=== PATIENT | male | born 1950 | race Caucasian/White ===

== ENCOUNTER 2021-11-08 08:55 | Outpatient (CLI) | payer MEDICARE, OTHER, SELFPAY ==
--- NOTE | 2021-11-08 09:15 | TELERAD_ITS ---
[address] [address] Phone:?[phone] Fax:?[phone] Referring Physician Information: Ryan Pearce [address] [facility] [address] Phone:?[phone] Fax:?[phone] Patient:Javid Ross D.O.B:?1950 Sex:?Male Phone:?[phone] [facility] MRN:?[id number] Exam Date:?11/08/2021 ? EXAM: MRI of the RIGHT SHOULDER, without contrast CLINICAL INFORMATION: Male, 70 years old, with right shoulder pain. INDICATION: Evaluate for rotator cuff tear. PRIOR SURGERY: None reported. PLAIN FILMS: None available. COMPARISONS: No prior MRIs available. TECHNICAL INFORMATION: Using a 1.5T MR scanner and a localizing surface coil: coronal obliques: PD, T2, STIR sagittal obliques: PD, T2 axials: PD, T2 SEDATION: None CONTRAST: None FINDINGS: Bones: Proximal humerus: No fracture or marrow edema/pathology. No humeral Hill-Sachs or reverse Hill-Sachs lesion/impaction or contusion. Glenoid: No fracture or marrow edema/pathology. No osseous Bankart lesion. Rotator cuff and muscles/tendons: Supraspinatus: Full width, full-thickness tear of supraspinatus, tendon retraction to level the glenohumeral joint and grade 2 muscle atrophy. Infraspinatus: Full width, full-thickness tear of infraspinatus, with tendon retraction to the medial aspect of the humeral head and grade 2 muscle atrophy. Teres minor: No tendinopathy, tear or atrophy. Subscapularis: Mild tendinopathy is distal subscapularis with partial-thickness articular/interstitial tearing extending to the superior leading edge of the tendon over an area measuring 1.2 cm mediolateral by 1.0 cm superoinferior and involving approximately 50% of the tendon thickness (sagittal T2 series 8 image 9 and axial PD series 3 image 48). No muscle atrophy. Deltoid: No strain or atrophy. Coracoacromial arch: Acromion morphology: The acromion has type II morphology. No discrete subacromial osseous spur or os acromiale. Acromiohumeral space: The acromiohumeral space measures 2.5 mm at its narrowest point (osseous distance). Coracohumeral space: The coracohumeral space is within normal limits. Acromioclavicular joint: Joint: Mild to moderate AC joint arthropathy with approximately 3 mm of inferior osteophytosis. Ligaments: Coracoclavicular ligaments are intact. Bursae: Subacromial-subdeltoid: Moderate subacromial and subdeltoid bursal fluid, which reflects accumulation from the full-thickness rotator cuff tear. Subcoracoid: No convincing subcoracoid bursal thickening/bursitis. Biceps tendon: The long head of the biceps tendon is present within the bicipital groove inferiorly, but becomes medially subluxated at the lesser tuberosity. There is moderate tendinopathy and ill-defined intermediate grade partial-thickness articular segments (sagittal PD series 7 images 7-15). Glenohumeral joint: Effusion/cyst: Moderate glenohumeral joint effusion. Articular cartilage: Humeral head: No osteochondral abnormalities. Glenoid: No osteochondral abnormalities. Loose bodies: No discrete intra-articular body within the joint. Labrum:?Circumferential degeneration and tearing of the labrum, which is of doubtful clinical significance. Inferior glenohumeral ligament/axillary pouch:?Intact. The axillary pouch is normal in thickness and signal. No evidence of adhesive capsulitis or capsular injury. IMPRESSION: 1. Full width, full-thickness tears of supraspinatus & infraspinatus, each with tendon retraction to at least the medial aspect of the humeral head and grade 2 muscle atrophy. 2. Findings in keeping with a biceps bernice injury: -Mild subscapularis tendinopathy with a 1.2 x 1.0 cm area of intermediate grade interstitial tearing at the superior leading edge of the tendon. -Medial subluxation of the biceps long head tendon at the lesser tuberosity. -Moderate tendinopathy and ill-defined intermediate grade partial-thickness tearing of the intra-articular biceps long head tendon. 3. Moderate glenohumeral joint effusion which extends into the subacromial- subdeltoid bursa. No full-thickness condyle defect or evidence of osteoarthritis. 4. Marked narrowing of the acromiohumeral space. Additionally, there is mild- moderate AC joint arthropathy with 3 mm of inferior osteophytosis. 5. Circumferential degeneration and tearing of the labrum, which is of doubtful clinical significance. BC Electronically signed on 11/08/2021 2:02:00 PM by Stephan House M.D.
== END 2021-11-08 08:56 | disposition home or self-care (01) ==
LOC: MRI 08:59
PROVIDERS: PCP Family Medicine; Visit Provider Physician Assistant Surgical
DX: M25.511 Pain in right shoulder (principal); M75.101 Unspecified rotator cuff tear or rupture of right shoulder, not specified as traumatic; M25.411 Effusion, right shoulder; S46.911A Strain of unspecified muscle, fascia and tendon at shoulder and upper arm level, right arm, initial encounter
CPT/HCPCS: 73221

== ENCOUNTER 2021-11-23 15:38 | Outpatient (CLI) | payer MEDICARE, OTHER, SELFPAY ==
[2021-11-23 17:49] LABS: Chloride* 99 mmol/L (96-114)
[2021-11-23 17:50] LABS: Potassium* 5.1 mmol/L (3.6-5.1); Sodium* 132 mmol/L (135-149)
[2021-11-23 17:53] LABS: Blood Urea Nitrogen* 19 mg/dL (7-30); Calcium* 9.9 mg/dL (8.4-10.6); Carbon Dioxide* 25 mmol/L (20-32); Creatinine* 1.1 mg/dL (0.5-1.5); Estimated Glomerular Filt Rate 72 ml/min; Glucose* 104 mg/dL (60-115)
== END 2021-11-23 15:39 | disposition home or self-care (01) ==
LOC: LONREF 15:39
PROVIDERS: PCP Family Medicine; Visit Provider Family Medicine
DX: Z01.818 Encounter for other preprocedural examination (principal)
CPT/HCPCS: 80048

== ENCOUNTER 2021-11-28 08:16 | Day surgery (SDC) | payer MEDICARE, OTHER, SELFPAY ==
[2021-11-28] VITALS (17 sets, daily range): BP systolic 120–159; BP diastolic 55–96; PULSE 55–90; RESP 12–16; TEMP 36.1–37.1; O2SAT 91–100; BMI 31.1
[2021-11-28] MEDS: LACTATED RINGERS 1000 ML 1,000 ML 100 ML IV ×3 (08:30→16:24)
[2021-11-28] MEDS: ETHYL CHLORIDE 1 APPLICATION 1 APPLIC TOPICAL (09:08)
[2021-11-28] MEDS: SODIUM CHLORIDE 0.9 % (FLUSH) 10 ML SYRINGE IVF (09:08)
--- NOTE | 2021-11-28 09:13 | SUR.PREOP ---
TIME?OUT:?1012 PT/RN SHELDON /MARCIO ALFONSO ?VERIFICATION?OF?SURGICAL?SITE RIGHT SHOULDER,?PROCEDURE RIGHT SHOULDER BLOCK,?AND?CONSENT OBTAINED?PRIOR?TO?INVASIVE?PROCEDURE.
[2021-11-28] MEDS: fentaNYL 100 MCG/2 ML inj IVP (10:16)
[2021-11-28] MEDS: MIDAZOLAM HCL 1 MG/ML inj IVP (10:16)
--- NOTE | 2021-11-28 10:21 | W.PM.NB ---
Nerve Block Nerve Block Time Seen by Provider: 10:21 Date Seen: 11/28/21 Type of block requested by surgeon for post-operative analgesia: interscalene Side: right Time out performed: Yes Verification of patient name: Yes Verification of date of : Yes Site marking: site marked Name of person performing procedure: Reji Continuous monitoring Was continuous monitoring of O2 sat, B/P, manager monitoring, recorded every 15 minutes?: Yes Procedure Checklist: sterile prep, needles and gloves Ultrasound guided. Images saved: Yes Medications given in 5ml increments after negative aspiration: Marcaine %: 0.5 mL: 20 Needle gauge: 22 Decadron (mg): 10 Precedex (mcg): 25 Patient tolerated procedure well: Yes Block Charges Block Charge (with Pro Fee): Brachial Plexus Use of Ultrasound Machine for Block: Yes- US Guidance/pain block
[2021-11-28] MEDS: CEFAZOLIN 2 GM INJ IVP (11:39)
--- NOTE | 2021-11-28 14:05 | PM.ORPRC ---
Procedure Note Date of procedure: 11/28/21 Procedure: PREOPERATIVE DIAGNOSES: 1. Right shoulder rotator cuff [id number] supra and infra with grade 2 atrophy and tearing/retraction back to the posterior mid humeral head. Also upper border subscapularis tearing. 2. Right shoulder subacromial impingement syndrome. POSTOPERATIVE DIAGNOSES: 1. Right shoulder rotator cuff [id number] supra and infra with grade 2 atrophy and tearing/retraction back to the posterior mid humeral head. Also upper border subscapularis tearing. 2. Right shoulder AC degenerative joint disease 3. Right shoulder long head of biceps partial-thickness tearing and subluxation out of the bicipital groove 4. Right shoulder circumferential labral degenerative fraying and tearing 5. 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 Right shoulder subacromial impingement syndrome. 7. Right shoulder adhesions surrounding the superficial and deep surface of the supraspinatus and infraspinatus distinctly separate from the glenohumeral debridement/pathology. NAME OF OPERATION: 1. Right shoulder arthroscopic rotator cuff [id number]-rhie-ebtkmuxlz supra/infra tear (speed bridge configuration; upper border subscapularis tear, full-thickness with mild retraction) 2. Right shoulder arthroscopic extensive glenohumeral debridement including debridement of labral tissue, humeral loose chondral flaps, rotator cuff tissue on the humeral head, synovial tissue anterior rotator interval, biceps tendon stump and tendon tissue 3. Right shoulder arthroscopic distal clavicle excision 4. Right shoulder arthroscopic biceps tenotomy 5. Right shoulder arthroscopic bursectomy, subacromial decompression/partial acromioplasty. 6. Right shoulder arthroscopic lysis of adhesions SURGEON: [place] MD [employer]CHO[employer] PHYSICAL EDUCATION TEACHER: Rolando Osorio PA-C. Of note, a skilled diploma medical assistant was critical for this case to aide in patient positioning, suture manipulation, arm positioning, instrument positioning, and closure. ANESTHESIA: General plus preoperative supraclavicular block. EBL: 50 mL IMPLANTS: Arthrex 4.75 mm BioComposite SwiveLock suture anchor (x2); 5.5 mm BioComposite corkscrew suture anchor (x1); 5.5 mm BioComposite SwiveLock suture anchor (x2) COMPLICATIONS: None evident INDICATIONS: The patient is a pleasant, 71-year-old male who has experienced right shoulder pain that has been increasing in recent time. Physical exam and imaging were consistent with a rotator cuff tear. Given their findings, as well as the weakness and pain, and inadequate response to nonoperative management, recommendation was made for surgery. FINDINGS: Exam under anesthesia revealed stable shoulder with excellent range of motion. The diagnostic arthroscopy revealed grade 2 chondromalacia glenoid and grade 3 chondromalacia with some loose chondral flaps humeral head. The Subscapularis tendon was torn from its upper border with mild to moderate retraction. The long head of the biceps tendon was torn in a partial-thickness manner with medial subluxation out of bicipital groove. The superior rotator cuff tendon was found to be torn full-thickness through the entire supraspinatus and majority the infraspinatus with retraction both posteriorly and medially to the mid humeral head at least. The labrum was degeneratively frayed and torn nearly circumferentially. No loose bodies were identified within the pouch or subscapularis recess. PROCEDURE: Following a thorough discussion of risks, benefits, and alternatives, consent was obtained and the right shoulder was marked. The patient was brought to the operating room and placed supine on the operating table. Induction of anesthesia was completed after preoperative supraclavicular block was administered in preop holding. Appropriate time out was performed identifying proper patient, site, and procedure. 2 g IV Ancef was administered within 1 hour of incision preoperatively. The right upper extremity was prepped and draped in the appropriate sterile fashion using ChloraPrep prep. This was after the patient was positioned in the beach chair with their head in neutral alignment and all bony prominences well padded. The shoulder was insufflated with 20mL of normal saline via an 18g spinal needle from a posterior approach. An 11 blade skin incision allowed a blunt trochar to be inserted and diagnostic arthroscopy to be performed with the findings as noted above. An anterior portal was established with an outside in technique. This allowed the probe to be inserted and confirm the diagnostic arthroscopic findings. The shaver was then inserted and allowed debridement of the labrum near circumferentially. We also debrided the loose chondral flaps on the humeral head with the torpedo shaver. The rotator interval was also debrided with the torpedo shaver and [place] cautery. Additionally, the long of the biceps was released from the bicipital tuberosity for arthroscopic tenotomy. The stump was debrided with a shaver. Following this, the upper border subscapularis was repaired after debriding the lesser tuberosity with the shaver and [place] cautery. Subscapularis was captured in horizontal mattress fashion with a fiber tape suture. The tails were brought to a single anchor in the lesser tuberosity with excellent reapproximation of the subscap tendon and good excursion/tension. Thereafter, the subacromial space was entered. Here, a complete bursectomy and partial acromioplasty/subacromial decompression was performed with a combination of radiofrequency ablator, the shaver, and a 5.5 mm bur. Additionally, distal clavicle excision was performed with the bur. 8 mm of distal clavicle was resected based on the with of our bur. Further inspection of the supraspinatus and infraspinatus rotator cuff was performed. This identified the tears noted above. It was adhesed to the superficial and deep tissues. Lysis of adhesions was required to help mobilize the tissue. This took an extra 45 minutes to even mobilize the tissue to provide excursion enough for the rotator cuff to be able to be repaired to the greater tuberosity. This was distinctly separate dissection from the extensive glenohumeral debridement as previously noted. After gentle decortication, a speed bridge configuration with a medial bernice was engaged. 2 medial anchors were placed (the posterior medial was a corkscrew suture anchor with these 4 tails passed independently and tied to provide tension at this time. The anterior medial was with suture tapes for planned speed bridge type of configuration. The eyelet suture tails were then retrieved and tied and cinched down for the medial bernice purpose. A tail from each of the medial row anchor FiberTapes were then brought to a lateral row anchor along with 1 of the tails from the medial bernice. Excellent reapproximation of the tissue to the greater tuberosity was achieved with broad footprint compression. Of note, the needle tip did break off during the procedure. It is extremely small but was not confirmed to be found during the remaining of the procedure including through the vacuum suction. Prior to anchor pile driver operator removal, the eyelet sutures were tugged on for each anchor and found that the anchor had excellent stability within the bone. The shoulder was placed through range of motion and found to be stable. The rotator cuff was re-probed and found to be stable. Instruments were removed. Excess fluid was drained, closure performed with 4-0 Monocryl and Steri-Strips. Dressings were applied. Sling was applied. The patient was awoken from anesthesia and transferred to the PACU in stable condition. A skilled diploma medical assistant was critical for this case to aid in patient positioning, limb positioning, skill to manipulate arthroscopic instruments and camera, suture management, patient safety, and closure. PLAN: 1. Elbow, forearm, wrist and digit range of motion as tolerated. 2. Encouraged ice. 3. Percocet for pain as needed. 4. Sling at all times except for ROM and showering. 5. Follow up with PA visit in 1-2 weeks for wound check. Initiate physical therapy following that visit for passive range of motion. Initiate active assisted range of motion at 4-6 weeks depending on tear size. May do pendulums now.
--- NOTE | 2021-11-28 14:33 | W.ANESCHARGE ---
Anesthesia Charges Start Date/Time Anesthesia Start Date: 11/28/21 Anesthesia Start Time: 11:28 Stop Date/Time Anesthesia Stop Date: 11/28/21 Anesthesia Stop Time: 14:29 Summary Emergency: No Extremes of Age: Over 70-CPT 99727
--- NOTE | 2021-11-28 14:38 | W.ANESCHARGE ---
Anesthesia Charges Start Date/Time Anesthesia Start Date: 11/28/21 Anesthesia Start Time: 11:28 Stop Date/Time Anesthesia Stop Date: 11/28/21 Anesthesia Stop Time: 14:29 Summary Emergency: No Extremes of Age: Over 70-CPT 87335
--- NOTE | 2021-11-28 14:39 | CRLHL7_ITS ---
For Patients: As a result of the Century Cures Act, medical imaging exams and procedure reports are released immediately into your electronic medical record. You may view this report before your referring provider. If you have questions, please contact your health care provider. Indication: Post scope Technique: Two portable radiographs of the right shoulder. IMPRESSION: Tiny 1-2 millimeter radiodensity projects over the proximal humerus. Spurring at the AC joint. Postop changes soft tissues. No fracture. Dictated by Addison Owen MD @ 11/28/2021 3:32:25 PM (Electronically Signed)
== END 2021-11-28 16:16 | disposition home or self-care (01) ==
PROVIDERS: Visit Provider Orthopaedic Surgery Sports Medicine
PROC: (CPT 29805; principal; 2021-11-28 10:30)
DX: M75.121 Complete rotator cuff tear or rupture of right shoulder, not specified as traumatic (principal); M19.011 Primary osteoarthritis, right shoulder; M75.41 Impingement syndrome of right shoulder; S46.111A Strain of muscle, fascia and tendon of long head of biceps, right arm, initial encounter; M94.211 Chondromalacia, right shoulder; M75.01 Adhesive capsulitis of right shoulder
CPT/HCPCS: 29827; 29828; 29826; 29824; 29823; 29825; 01630; 64415; 73030; 76942; 99100; C1713; J0171; J0330; J0690; J1100; J2250; J2370; J2405; J2704; J3010; J3490; J7120

== ENCOUNTER 2022-04-04 12:00 | Outpatient (RCR) | payer MEDICARE, OTHER, SELFPAY ==
--- NOTE | 2022-02-22 14:19 | PT.OPEX ---
[facility] Outpatient Eval Start: 12/09/21 13:42 Freq: Status: Active Protocol: Document 12/09/21 13:42 ACW (Rec: 12/09/21 13:59 ACW [id number]) E-signed By Deja Srinivasan, PT, ATC Physical Therapy Outpatient Evaluation Insurance Information Insurance Name Medicare B,[employer] Medical Diagnosis s/p RCR - 11/28/21 Treating Diagnosis decreased right shoulder ROM and strength Referring MD [place] Subjective Subjective Harshil is here at 11 weeks s/p surgery. He is concerned with how much pain he is still experiencing when trying to bring his arm into flexion. He is doing the pulleys and that isn't painful. put with resistance he has pain - and with palpation he has pain in his pec muscle, bicep muscle and anterior deltoid. Pain Comments 0-07/31 Date of Last Physician Visit 12/09/21 Date of Next Physician Visit 03/08/22 Current Work Status Retired Preferred Name Harshil Precautions Treatment Precautions/Contraindications pt is avoid AAROM until Weight Bearing Status Full Weight Bearing Therapy Limitations/Systems Review Not Limited Assessment Assessment/Impression Harshil is concerned with the anterior shoulder pain. He doesn't have any clunking with movement. He is still so weak in his anterior shoulder muscles. He is going hunting in 2 wks for 2 wks. He is meeting with his surgeon right before . I will see him thereafter Plan of Care Rehabilitation Potential Good Physical Therapy Goals 1. pt will be competent and compliant with home ex and icing - met 2. by the 2nd week of December pt will be able to perform AAROM including bernice and wand exercises with 3/10 max discomfort - met 3. by mid february pt will be able to safely get out deer hunting with 3/10 max right shoulder pain 4. by the end of the year pt will have 80 % full AROM of his right shoulder with 2/10 max discomfort 5. 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
== END 2022-04-04 12:41 | disposition home or self-care (01) ==
PROVIDERS: Visit Provider Physician Assistant Surgical
DX: M25.511 Pain in right shoulder (principal); Z51.89 Encounter for other specified aftercare
CPT/HCPCS: 97110; 97140; 97161; 97530